=== PATIENT | female | born 1985 | race Caucasian/White ===

== ENCOUNTER 2021-02-21 12:27 | Outpatient (CLI) | payer OTHER, SELFPAY ==
--- NOTE | ~2021-02-21 | MR_ITS ---
EXAMINATION: MR abdomen wo/w con DATE: 02/21/2021 13:57 INDICATION: Liver hemangioma. TECHNIQUE: Magnetic resonance imaging (MRI) of the abdomen was performed without and with 16 mL Multi Saima intravenous contrast. Sequences included coronal T2-weighted FS FSE, coronal and axial FS FIEST A, axial T2-weighted FSE, coronal LAVA-flex, axial STIR FSE, axial DWI, axial dual-echo T1-weighted F SPGR, and axial LAVA. Postcontrast sequences included coronal LAVA-flex and a time course of axial LA VA. COMPARISON: Abdomen MRI 08/28/2018, CT abdomen and pelvis 02/03/2018 FINDINGS: There is a 16 mm hyperenhancing mass in right hepatic lobe. No washout. The gallbladder, spleen, panc reas, adrenal glands, and left kidney are normal. There is a 5 mm cyst in right kidney. There are no dilated loops of bowel. There are no pathologically enlarged lymph nodes. There is no free intraperit fuchs fluid. IMPRESSION: 1. 16 mm hyperenhancing liver mass, stable from 08/28/2018, likely a benign mass such as hemangioma o r focal nodular hyperplasia. Reviewed, dictated and finalized at location A. IMPRESSION: 1. 16 mm hyperenhancing liver mass, stable from 08/28/2018, likely a benign mas s such as hemangioma or focal nodular hyperplasia.
[2021-02-21 13:20] LABS: Estimated Glomerular Filt Rate 57
== END 2021-02-21 12:28 | disposition home or self-care (01) ==
PROVIDERS: PCP Internal Medicine
DX: D18.09 Hemangioma of other sites (principal)
CPT/HCPCS: 74183; A9577

== ENCOUNTER 2021-07-29 09:49 | Outpatient (CLI) | payer BC, SELFPAY ==
[2021-07-29 20:24] LABS: Add Urine Microscopic? NO; Appearance Urine Clear (Clear); Bilirubin Urine Negative (Negative); Blood Urine Negative (Negative); Color Urine Straw (Yellow); Glucose Urine UA Negative (Negative); Ketones Urine Negative (Negative); Leukocyte Esterase Ur Negative LEU/UL (NEGATIVE); Nitrate Urine Negative (Negative); Protein Urine Negative (Negative); Specific Grav Ur 1.008 (1.001-1.035); Urobilinogen Urine Negative mg/dL (<2.0)
[2021-07-29 20:32] LABS: Basophils Absolute Auto 0.1 K/mm3 (0.0-0.1); Basophils Percent Auto 1.2 % (0.2-1.2); Eosinophils Absolute Auto 0.1 K/mm3 (0-0.3); Hematocrit 44.7 % (37.0-47.0); Hemoglobin 14.5 g/dL (12.0-15.0); Immature Granulocyte Absolute 0.01 K/mm3 (0.00-0.031); Immature Granulocyte Percent A 0.2 % (0-0.5); Lymphocytes Absolute Auto 1.61 K/mm3 (0.9-3.2); Lymphocytes Percent Auto 32.5 % (18.3-44.2); Mean Corpuscular HGB Conc 32.4 g/dl (32-36); Mean Corpuscular Hemoglobin 30.9 pg (26-34); Mean Corpuscular Volume 95.3 fl (80-100); Mean Platelet Volume 9.4 fl (7.4-10.4); Monocytes Absolute Auto 0.6 K/mm3 (0.1-0.6); Monocytes Percent Auto 11.1 % (2.6-8.5); Neutrophils Absolute Auto 2.6 K/mm3 (1.3-6.7); Platelet Count Result 317 k/mm3 (150-375); Red Blood Count 4.69 M/mm3 (4.2-5.4); Red Cell Distribution Width 13.2 % (11.5-14.5)
[2021-07-29 20:34] LABS: Alanine Aminotransferase 20 U/L (4-35); Albumin Level 4.5 g/dL (3.5-5.1); Alkaline Phosphatase 55 U/L (38-126); Anion Gap 9 mmol/L (8-16); Aspartate Amino Transferase 27 U/L (14-36); Bilirubin,Total 0.5 mg/dL (0.2-1.3); Blood Urea Nitrogen 18 mg/dL (7-17); Calcium 9.9 mg/dL (8.4-10.2); Carbon Dioxide 26 mmol/L (22-30); Chloride 105 mmol/L (98-107); Cholesterol 172 mg/dL (0-200); Estimated Glomerular Filt Rate > 60; Glucose 90 mg/dL (65-110); HDL Direct 54 mg/dL; Potassium 4.2 mmol/L (3.4-5.0); Sodium 140 mmol/L (137-145); Triglycerides 92 mg/dL (<150)
[2021-07-29 20:51] LABS: LDL Cholesterol Direct 96 mg/dL
[2021-07-29 20:52] LABS: Hemoglobin A1C 5.4 % (<5.7)
[2021-07-29 21:05] LABS: Thyroid Stimulating Hormone Reflex 0.425 uIU/mL (0.465-4.68)
[2021-07-29 22:11] LABS: Free T4 Free Thyroxine Reflex 0.86 ng/dL (0.78-2.19)
[2021-07-29 23:04] LABS: Total Triiodothyronine (T3) 1.15 NG/ML (0.97-1.69)
== END 2021-07-29 09:50 | disposition home or self-care (01) ==
PROVIDERS: PCP Family Medicine; Visit Provider Family Medicine
DX: R55 Syncope and collapse (principal); Z00.00 Encounter for general adult medical examination without abnormal findings
CPT/HCPCS: 36415; 80053; 80061; 81003; 83036; 84439; 84443; 84480; 85025; 93005

== ENCOUNTER 2021-07-29 14:58 | Outpatient (CLI) | payer BC, SELFPAY ==
--- NOTE | 2021-07-29 15:14 | ECG_ITS ---
Measurements Intervals [place] Rate: 50 P: -8 MS: 142 QRS: 70 QRSD: 118 T: 16 QT: 452 QTc: 415 Interpretive Statements SINUS BRADYCARDIA INCOMPLETE RIGHT BUNDLE BRANCH BLOCK LOW QRS VOLTAGE IN PRECORDIAL LEADS BORDERLINE ECG Electronically Signed On 07-29-2021 15:42:17 CDT by Rosendo Prince D.O.
== END 2021-07-29 14:59 | disposition home or self-care (01) ==
LOC: ANHCARD 15:02
PROVIDERS: PCP Family Medicine; Visit Provider Family Medicine
DX: R55 Syncope and collapse (principal); I45.10 Unspecified right bundle-branch block
CPT/HCPCS: 93005

== ENCOUNTER 2021-08-18 11:31 | Outpatient (CLI) | payer BC, SELFPAY ==
--- NOTE | ~2021-08-18 | XR_ITS ---
XR abdomen obstructive series 08/18/2021 11:54 Indication: Abdominal pain Procedure: Supine and upright views of abdomen Comparison: No prior studies for comparison. Findings: Nonobstructive bowel gas pattern. Moderate colonic fecal loading. There is a punctate left renal stone. Lung bases unremarkable. No significant pleural effusion. No acute osseous abnormality. No free air. Impression: 1: Nonobstructive bowel gas pattern. 2: Left nephrolithiasis. Reviewed, dictated and finalized at location B. Impression: 1: Nonobstructive bowel gas pattern. 2: Left nephrolithiasis.
[2021-08-18 20:10] LABS: Basophils Absolute Auto 0.1 K/mm3 (0.0-0.1); Basophils Percent Auto 1.2 % (0.2-1.2); Eosinophils Absolute Auto 0.1 K/mm3 (0-0.3); Eosinophils Percent Auto 1.9 % (0-4.4); Hematocrit 39.5 % (37.0-47.0); Hemoglobin 12.8 g/dL (12.0-15.0); Immature Granulocyte Absolute 0.02 K/mm3 (0.00-0.031); Immature Granulocyte Percent A 0.4 % (0-0.5); Lymphocytes Absolute Auto 1.52 K/mm3 (0.9-3.2); Lymphocytes Percent Auto 29.2 % (18.3-44.2); Mean Corpuscular HGB Conc 32.4 g/dl (32-36); Mean Corpuscular Hemoglobin 31.1 pg (26-34); Mean Corpuscular Volume 96.1 fl (80-100); Mean Platelet Volume 9.4 fl (7.4-10.4); Monocytes Absolute Auto 0.4 K/mm3 (0.1-0.6); Monocytes Percent Auto 8.4 % (2.6-8.5); Neutrophils Absolute Auto 3.1 K/mm3 (1.3-6.7); Neutrophils Percent Auto 58.9 % (45.5-73.1); Platelet Count Result 274 k/mm3 (150-375); Red Blood Count 4.11 M/mm3 (4.2-5.4); Red Cell Distribution Width 12.9 % (11.5-14.5); White Blood Count 5.2 K/mm3 (4.5-10.0)
== END 2021-08-18 11:32 | disposition home or self-care (01) ==
LOC: ANHBWCLAB 11:33
PROVIDERS: PCP Family Medicine; Visit Provider Family Medicine
DX: R19.7 Diarrhea, unspecified (principal); R10.9 Unspecified abdominal pain; R79.89 Other specified abnormal findings of blood chemistry; N20.0 Calculus of kidney
CPT/HCPCS: 36415; 74019; 84443; 85025

== ENCOUNTER 2021-11-29 11:43 | Emergency (ER) | payer OTHER, BC, SELFPAY ==
[2021-11-29 11:54] VITALS: BP 121/74; PULSE 58; RESP 16; TEMP 36.8; O2SAT 100
--- NOTE | 2021-11-29 12:38 | ED.SKABFB ---
HPI - Skin/Abscess/Foreign Bdy General Chief complaint: Skin/Abscess/Foreign Body Stated complaint: R index finger injury Time Seen by Provider: 11/29/21 12:34 Source: patient and RN notes reviewed Mode of arrival: ambulatory Limitations: no limitations History of Present Illness HPI narrative: 36-year-old female presents with concern for infection to the second digit of her right hand. She reports she stabbed herself with a skewer at work 1 week ago. Reports it began getting red, tender, swollen yesterday. She denies any drainage from the area. She denies any decrease sensation, strength, range of motion. complaint: other (paronychia) Related Data Allergies Allergy/AdvReac Type Severity Reaction Status Date / Time amoxicillin Allergy Unknown Unknown Verified 11/29/21 11:57 sulfamethizole Allergy Unknown Unknown Verified 11/29/21 11:57 sulfamethoxazole Allergy Unknown Unknown Verified 11/29/21 11:57 trimethoprim Allergy Unknown Unknown Verified 11/29/21 11:57 Review of Systems Review of Systems: CONSTITUTIONAL: Denies malaise, chills, sweats, or fever. SKIN: Reports redness, warmth, swelling to the tip of the second digit of the right hand MUSCULOSKELETAL: Denies joint pain or myalgia. NEUROLOGIC: Denies headache. All systems reviewed & are unremarkable except as noted in HPI and below PMFSH Family History Family History Father Hypertension Diabetes mellitus Mother Family history of diabetes mellitus in first degree relative Sibling Depression Anxiety Grandparent Alcohol abuse Cancer Grandparent Cancer Social History Social History Smoking packs per day: 0.75 Smoking cigarettes per day: 15.0 Smoking status: Current every day smoker Tobacco type: cigarettes Second hand tobacco smoke exposure: No Smoking end date: 10/30/15 Alcohol intake: never Substance use: never Comments At time of signature, agree with nursing past medical, surgical, social and family history. There is no relevant family history pertinent to the presenting complaint Exam Narrative: GENERAL: Well-appearing, well-nourished, and in no acute distress. HEAD: Normocephalic, atraumatic. EYES: PERRLA, sclera clear ENT: Mucous membranes moist. NECK: Supple. No lymphadenopathy CHEST: Clear to auscultation. No respiratory distress. HEART: Regular rate and rhythm. SKIN: Warm, dry. Medial distal end of the second edge of the right hand erythematous, slightly indurated, slightly warm, tender without fluctuation NEURO: Alert and oriented x3. PSYCH: Normal mood and affect Course Course Emergency Course: Patient is aware of diagnosis, understands and agrees to treatment plan. Anticipatory guidance given. Patient agrees to follow-up as directed and is aware of reasons to seek care at the emergency department. Portions of this record may have been created with voice recognition software Level of Care: Express Care Visit Vital Signs Vital signs: Vital Signs Temperature 98.2 F 11/29/21 11:54 Pulse Rate 58 L 11/29/21 11:54 Respiratory Rate 16 11/29/21 11:54 Blood Pressure 121/74 11/29/21 11:54 Pulse Oximetry 100 11/29/21 11:54 Temperature 98.2 F 11/29/21 11:54 Pulse Rate 58 L 11/29/21 11:54 Respiratory Rate 16 11/29/21 11:54 Blood Pressure 121/74 11/29/21 11:54 Pulse Oximetry 100 11/29/21 11:54 Reviewed. MDM - Skin/Abscess/Foreign Bdy MDM Narrative Medical decision making narrative: Exam findings show no acute concerns or changes; patient is non-toxic appearing and is in no distress. Patient is appropriate for outpatient treatment and follow-up. Critical Care Time Critical Care Time Critical Care Time: No Discharge Plan Discharge Clinical Impression: Paronychia Patient Disposition: Home, Self-Care Condition: Stable Instructions: Antibiotic Form, Paronychia (ED) A
== END 2021-11-29 12:47 | disposition home or self-care (01) ==
PROVIDERS: Emergency Provider Nurse Practitioner; PCP Family Medicine
DX: L03.011 Cellulitis of right finger (principal); F17.210 Nicotine dependence, cigarettes, uncomplicated; F32.A Depression, unspecified
CPT/HCPCS: 99213; G0463

== ENCOUNTER 2022-06-30 08:42 | Outpatient (CLI) | payer BC, SELFPAY ==
--- NOTE | ~2022-06-30 | XR_ITS ---
EXAMINATION: XR knee RT 3V DATE: 06/30/2022 09:10 INDICATION: Right knee pain. TECHNIQUE: 4 views of right knee were obtained. COMPARISON: None. FINDINGS: Bone alignment is normal. No fracture. There is mild tricompartmental osteoarthritis charac terized by tiny osteophytes. No joint space narrowing. No knee joint effusion. IMPRESSION: 1. Mild right knee osteoarthritis. Reviewed, dictated and finalized at location A.
--- NOTE | ~2022-06-30 | XR_ITS ---
EXAMINATION: XR knee LT 3V DATE: 06/30/2022 09:10 INDICATION: Left knee pain. TECHNIQUE: 4 views of left knee were obtained. COMPARISON: None. FINDINGS: Bone alignment is normal. No fracture. There is mild tricompartmental osteoarthritis charac terized by tiny osteophytes. No joint space narrowing. No knee joint effusion. IMPRESSION: 1. Mild left knee osteoarthritis. Reviewed, dictated and finalized at location A.
== END 2022-06-30 08:43 | disposition home or self-care (01) ==
LOC: ANHBWCIMG 08:43
PROVIDERS: PCP Family Medicine; Visit Provider Family Medicine
DX: M17.0 Bilateral primary osteoarthritis of knee (principal)
CPT/HCPCS: 73562

== ENCOUNTER 2022-07-20 08:00 | Emergency (ER) | payer BC, SELFPAY ==
--- NOTE | 2022-07-20 08:04 | ED.EAR ---
HPI - Ear Problem General Stated complaint: HEARING MUFFLED R EAR Time Seen by Provider: 07/20/22 08:05 Source: patient Mode of arrival: ambulatory Limitations: no limitations History of Present Illness HPI Narrative: Ms. Burgos is a 36-year-old female patient presenting to clinic today with complaints of hearing muffled to the right ear x4 to 5 days. She reports no known injury to the area and she has been using some Debrox earwax emulsifier and this is not helped. She denies any pain or fever. She has had some nasal congestion and cough on and off. She is a current tobacco smoker Related Data Home Medications Medication Instructions Recorded Confirmed aripiprazole 5 mg tablet 5 mg PO HS 07/20/22 07/20/22 clonazepam 0.5 mg tablet 0.5 mg PO PRN PRN Anxiety 07/20/22 07/20/22 hydroxyzine HCl 25 mg tablet 25 mg PO DAILY 07/20/22 07/20/22 lamotrigine 25 mg tablet 25 mg PO DAILY 07/20/22 07/20/22 terbinafine HCl 250 mg tablet 250 mg PO DAILY 07/20/22 07/20/22 Allergies Allergy/AdvReac Type Severity Reaction Status Date / Time sulfamethizole Allergy Unknown Unknown Verified 07/20/22 08:13 sulfamethoxazole Allergy Unknown Unknown Verified 07/20/22 08:13 trimethoprim Allergy Unknown Unknown Verified 07/20/22 08:13 Review of Systems Review of Systems: Pertinent positives per HPI. Patient denies any fever, chills, rash, headache, visual changes, dizziness, sore throat, shortness of breath, chest pain, palpitations, nausea, vomiting, diarrhea, constipation, abdominal pain, or any urinary issues. [facility] Family History Family History Father Hypertension Diabetes mellitus Mother Family history of diabetes mellitus in first degree relative Sibling Depression Anxiety Grandparent Alcohol abuse Cancer Grandparent Cancer Social History Social History Smoking packs per day: 0.75 Smoking cigarettes per day: 15.0 Smoking status: Current every day smoker Tobacco type: cigarettes Second hand tobacco smoke exposure: No Smoking end date: 10/30/15 Alcohol intake: never Substance use: never Comments At the time of my signature, I reviewed and agree with the nursing past medical, surgical, social, and family history. There is no relevant family history pertinent to the patient complaint. Exam Narrative: General: Well-developed, well nourished, in no apparent distress Head: Normocephalic, atraumatic Eyes: Pupils equally round and reactive to light bilaterally, EOM intact, sclera and conjunctive clear, no discharge, lids normal Ears: Left TM intact and clear, right TM intact, dull, with mild fluid noted behind TM, ear canals clear, no drainage, grossly hearing normal. Nose: Nares patent, no discharge, no inflammation, no sinus tenderness. Mouth: Oropharynx without lesions or masses, good dentition, MMM. Neck: Supple, trachea midline, no enlargement of anterior or posterior cervical nodes, no thyroid masses or goiter palpable. Cardio: Regular rate and rhythm, s1 and s2 normal, no murmur appreciated. Resp: Clear to auscultation bilaterally anteriorly and posteriorly, no rhonchi, rales, wheezing or rubs Course Course Emergency Course: Portions of this record may have been created with voice recognition software. Level of Care: Express Care Visit Vital Signs Vital signs: Vital signs reviewed Medical Decision Making MDM Narrative Medical decision making narrative: At the time of visit patient is resting comfortably on the exam table. Right TM has mild fluid behind the TM and is dull. I suspect the patient has serous otitis causing her muffled hearing. Supportive measures were discussed with the patient she voiced understanding of discharge instructions. I did offer the use of some prednisone to assist with drying up secretions and patient declined as this makes her angry. Differ
[2022-07-20 08:09] VITALS: BP 106/45; PULSE 55; RESP 16; TEMP 36.2; O2SAT 100
== END 2022-07-20 08:19 | disposition home or self-care (01) ==
PROVIDERS: Emergency Provider Nurse Practitioner Family; PCP Family Medicine
DX: H65.01 Acute serous otitis media, right ear (principal); F17.210 Nicotine dependence, cigarettes, uncomplicated; F41.9 Anxiety disorder, unspecified; F32.A Depression, unspecified
CPT/HCPCS: 99211; G0463

== ENCOUNTER 2022-09-26 08:21 | Emergency (ER) | payer BC, SELFPAY ==
--- NOTE | 2022-09-26 08:25 | ED.URI ---
HPI - URI/Sore Throat General Chief Complaint: Upper Respiratory Infection Stated Complaint: SORE THROAT/CONGESITON/COUGH/TIRED/CHILLS Time Seen by Provider: 09/26/22 08:25 Source: patient and RN notes reviewed History of Present Illness [facility] Narrative: Patient is a 37-year-old female who presents to urgent care with complaints of 5 day history of sore throat, sinus congestion, cough, fatigue, body aches and nasal drainage. Patient states her daughter was positive for strep last week. Denies any fevers, nausea, vomiting. Patient has been using Tylenol cold and Sinus as well as Sudafed. No other acute complaints. No acute distress noted. Patient aware of the plan of care. Some parts of this dictation were generated by voice recognition software and may contain typographical and/or grammatical inaccuracies. Related Data Home Medications Medication Instructions Recorded Confirmed aripiprazole 5 mg tablet 5 mg PO HS 07/20/22 09/26/22 clonazepam 0.5 mg tablet 0.5 mg PO PRN PRN Anxiety 07/20/22 09/26/22 hydroxyzine HCl 25 mg tablet 25 mg PO DAILY 07/20/22 09/26/22 terbinafine HCl 250 mg tablet 250 mg PO DAILY 07/20/22 09/26/22 bupropion HCl 150 mg 24 hr tablet, 150 mg PO DIRECTED 09/26/22 09/26/22 extended release (Wellbutrin XL) Allergies Allergy/AdvReac Type Severity Reaction Status Date / Time sulfamethizole Allergy Unknown Unknown Verified 07/20/22 08:13 sulfamethoxazole Allergy Unknown Unknown Verified 07/20/22 08:13 trimethoprim Allergy Unknown Unknown Verified 07/20/22 08:13 Review of Systems Review of Systems: CONSTITUTIONAL: Reported to EYES: Denies visual changes, redness, or discharge. ENT: Reports of nasal drainage, congestion, sore throat CARDIOVASCULAR: Denies chest pain, palpitations, or edema. RESPIRATORY: Reports cough without dyspnea GASTROINTESTINAL: Denies abdominal pain, nausea, vomiting, or diarrhea. GENITOURINARY: Denies dysuria or hematuria. SKIN: Denies rash or itching. MUSCULOSKELETAL: Denies back pain, joint pain. Reports body aches NEUROLOGIC: Denies headache, numbness, or weakness. All other systems reviewed are negative, except as documented in HPI. [facility] Family History Family History Father Hypertension Diabetes mellitus Mother Family history of diabetes mellitus in first degree relative Sibling Depression Anxiety Grandparent Alcohol abuse Cancer Grandparent Cancer Social History Social History Smoking packs per day: 0.75 Smoking cigarettes per day: 15.0 Smoking status: Current every day smoker Tobacco type: cigarettes Second hand tobacco smoke exposure: No Smoking end date: 10/30/15 Alcohol intake: never Substance use: never Comments At the time of my signature, I reviewed and agree with the nursing past medical, surgical, social, and family history. There is no relevant family history pertinent to the patient complaint. Exam Narrative: GENERAL: This is a well-nourished, well-developed patient, in no apparent distress. HEAD: normocephalic, atraumatic. EYES: PERRL. Sclera clear/white. Vision is grossly intact. EARS: External ears normal, auditory canals clear and without drainage, TMs normal without perforation. Hearing grossly intact. NOSE: External nose normal with no obvious nasal discharge, nares without redness, clear rhinorrhea. THROAT: Mucous membranes moist, posterior pharynx clear. Mild postnasal drainage NECK: Neck supple, non-tender without lymphadenopathy CARDIOVASCULAR: Regular rate and rhythm without murmurs, gallops, or rubs. RESPIRATORY: Inspiratory wheezes throughout. Breath sounds equal bilaterally. SKIN: warm, intact with no suspicious lesions or rash, good texture and turgor. NEURO: awake, alert, and oriented to person, place and time. There were no obvious focal neurologic abnormalities. EXTREMITIES: N
[2022-09-26 08:26] VITALS: BP 114/71; PULSE 53; RESP 16; TEMP 37; O2SAT 99
== END 2022-09-26 08:54 | disposition home or self-care (01) ==
PROVIDERS: Emergency Provider Nurse Practitioner Family; PCP Family Medicine
DX: J06.9 Acute upper respiratory infection, unspecified (principal); F17.210 Nicotine dependence, cigarettes, uncomplicated
CPT/HCPCS: 87081; 87804; 87880; 99213; G0463

== ENCOUNTER 2022-11-27 14:04 | Emergency (ER) | payer BC, SELFPAY ==
[2022-11-27 14:11] VITALS: BP 104/61; PULSE 68; RESP 16; TEMP 37.2; O2SAT 100
--- NOTE | 2022-11-27 14:27 | ED.FEMALEGU ---
HPI - Female Genitourinary General Chief complaint: Urogenital-Female Stated complaint: UTI SYMPTOMS Time Seen by Provider: 11/27/22 14:17 Source: patient Mode of arrival: ambulatory Limitations: no limitations History of Present Illness HPI Narrative: Patient presents today complaining of a 5 day history of dysuria, urgency, frequency, lower abdominal pain. Denies back pain, fever. She has been taking azo with some relief. Last dose was just prior to arrival. Denies any recent antibiotic use. Related Data Home Medications Medication Instructions Recorded Confirmed aripiprazole 5 mg tablet 5 mg PO HS 07/20/22 11/27/22 hydroxyzine HCl 25 mg tablet 25 mg PO DAILY 07/20/22 11/27/22 bupropion HCl 150 mg 24 hr tablet, 150 mg PO DIRECTED 09/26/22 11/27/22 extended release (Wellbutrin XL) Allergies Allergy/AdvReac Type Severity Reaction Status Date / Time sulfamethizole Allergy Unknown Unknown Verified 11/27/22 14:09 sulfamethoxazole Allergy Unknown Unknown Verified 11/27/22 14:09 trimethoprim Allergy Unknown Unknown Verified 11/27/22 14:09 Review of Systems Review of Systems: CONSTITUTIONAL: Denies body aches, fever, chills, or sweats. EYES: Denies visual changes, redness, or discharge. ENT: Denies rhinorrhea, congestion, sore throat, or otalgia. CARDIOVASCULAR: Denies chest pain, palpitations, or edema. RESPIRATORY: Denies cough or dyspnea. GASTROINTESTINAL: Denies nausea, vomiting, or diarrhea. GENITOURINARY: + dysuria, urgency, frequency, lower abdominal pain SKIN: Denies rash, itching, or wounds. MUSCULOSKELETAL: Denies back pain, joint pain, or myalgia. NEUROLOGIC: Denies headache, numbness, tingling, or weakness. PSYCH: Denies depression or anxiety. [facility] Past Medical History Medical History (Updated 11/27/22 @ 14:31 by Yeny Schafer, FACILITIES MAINTENANCE TECHNICIAN, ) Depression Family History Family History Father Hypertension Diabetes mellitus Mother Family history of diabetes mellitus in first degree relative Sibling Depression Anxiety Grandparent Alcohol abuse Cancer Grandparent Cancer Social History Social History (Reviewed 07/20/22 @ 08:25 by PATTIE Coleman Smoking packs per day: 0.75 Smoking cigarettes per day: 15.0 Smoking status: Current every day smoker Tobacco type: cigarettes Second hand tobacco smoke exposure: No Smoking end date: 10/30/15 Alcohol intake: never Substance use: never Comments At time of signature, I have reviewed and agree with nursing past medical, surgical, social and family history unless otherwise noted. Please see nursing chart for further information. There is no relevant family history pertinent to the presenting complaint Exam Narrative: GENERAL: Well-appearing, well-nourished, and in no acute distress. HEAD: Normocephalic, atraumatic. EYES: EOMI. No redness or drainage. Conjunctivae normal. ENT: Mucous membranes pink and moist. NECK: Normal AROM. CHEST: No respiratory distress. Clear to auscultation. HEART: Regular rate and rhythm. No murmur appreciated. Normal peripheral pulses. ABDOMEN: Soft, nondistended, normal active bowel sounds. Mild suprapubic tenderness EXTREMITIES: Normal range of motion. No edema. SKIN: Warm, dry, no rash. Capillary refill normal. Normal skin turgor. NEURO: No focal deficits. Alert and oriented x3. Gait steady. PSYCH: Normal affect. No signs of depression or anxiety. Course Course Emergency Course: He since patient took azo so close to her visit, it did speak with the results of her tests will treat empirically based on symptoms, and since the way off for urine culture to confirm. She will be prescribed Macrobid. Anticipatory guidance given. Level of Care: Express Care Visit Vital Signs Vital signs: Vital Signs Temperature 99 F 11/27/22 14:11 Pulse Rate 68 11/27/22 14:11 Respiratory Rate 16 11/27/22 14:11 Blood
== END 2022-11-27 14:37 | disposition home or self-care (01) ==
PROVIDERS: Emergency Provider Nurse Practitioner; PCP Nurse Practitioner Adult Health
DX: N39.0 Urinary tract infection, site not specified (principal); F17.210 Nicotine dependence, cigarettes, uncomplicated; F32.A Depression, unspecified
CPT/HCPCS: 81003; 87086; 87088; 99213; G0463

== ENCOUNTER 2023-10-30 10:09 | Emergency (ER) | payer OTHER, SELFPAY ==
--- NOTE | 2023-10-30 10:31 | ED.URI ---
HPI - URI/Sore Throat General Chief Complaint: Upper Respiratory Infection Stated Complaint: chills,throat hurts Time Seen by Provider: 10/30/23 11:04 Source: patient and RN notes reviewed Mode of arrival: ambulatory Limitations: no limitations History of Present Illness HPI Narrative: 38 year old female presents with concern for chills, sore throat, chest congestion since yesterday. She reports she took ibuprofen which helps. She reports nasal congestion, rhinorrhea, headache, body aches. 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: cough, sore throat and nasal congestion Related Data Home Medications Medication Instructions Recorded Confirmed aripiprazole 5 mg tablet 5 mg PO HS 07/20/22 10/30/23 hydroxyzine HCl 25 mg tablet 25 mg PO DAILY 07/20/22 10/30/23 bupropion HCl 150 mg 24 hr tablet, 150 mg PO DIRECTED 09/26/22 10/30/23 extended release (Wellbutrin XL) Allergies Allergy/AdvReac Type Severity Reaction Status Date / Time sulfamethizole Allergy Unknown Unknown Verified 10/30/23 10:37 sulfamethoxazole Allergy Unknown Unknown Verified 10/30/23 10:37 trimethoprim Allergy Unknown Unknown Verified 10/30/23 10:37 Review of Systems Review of Systems: CONSTITUTIONAL: Reports malaise, chills, sweats, or fever. EYES: Denies visual changes, redness, or discharge. ENT: Reports rhinorrhea, congestion, and sore throat. CARDIOVASCULAR: Denies chest pain, palpitations, or edema. RESPIRATORY: Reports cough and chest congestion. Denies dyspnea. GASTROINTESTINAL: Denies abdominal pain, nausea, vomiting, diarrhea SKIN: Denies rash or itching. MUSCULOSKELETAL: Reports myalgia. NEUROLOGIC: Reports headache. All systems reviewed & are unremarkable except as noted in HPI and below PMFSH Past Medical History Medical History Depression Family History Family History Father Hypertension Diabetes mellitus Mother Family history of diabetes mellitus in first degree relative Sibling Depression Anxiety Grandparent Alcohol abuse Cancer Grandparent Cancer Social History Social History Smoking packs per day: 0.75 Smoking cigarettes per day: 15.0 Smoking status: Current every day smoker Tobacco type: cigarettes Second hand tobacco smoke exposure: No Smoking end date: 10/30/15 Alcohol intake: never Substance use: never Comments At time of signature, agree with nursing past medical, surgical, social and family history. There is no relevant family history pertinent to the presenting complaint Exam Narrative: GENERAL: Nontoxic-appearing, well-nourished, and in no acute distress. HEAD: Normocephalic EYES: PERRLA, conjunctivae clear ENT: Nares clear, clear discharge. Mucous membranes moist. TM pearly sen with sharp light reflex bilaterally; no tragal tenderness. Oropharynx not erythematous without lesions. Tonsils not enlarged and without exudate, no drooling, no hoarseness, no trismus, uvula midline. NECK: Supple. No lymphadenopathy CHEST: Scattered expiratory wheeze, otherwise clear to auscultation, breath sounds equal. No rhonchi, rales, or stridor. No respiratory distress, speaks in full sentences. HEART: Regular rate and rhythm. No murmur heard. SKIN: Warm, dry, no rash. NEURO: Alert and oriented x3. PSYCH: Normal mood and affect Course Course Emergency Course: Patient is aware of diagnosis, understands and agrees to treatment plan. Anticipatory guidance given. Patient agrees to follow-up as directed and is aware of reasons to seek care at the emergency department. Portions of this record may have been created with voice recognition software Level of Care: Express Care Visit Vital Signs Vital signs: Reviewed. MDM - URI/Sore Throat MDM Narrative Medical decision making narrative: Differential diagnosis
[2023-10-30 10:41] VITALS: BP 134/89; PULSE 95; RESP 16; TEMP 37.5; O2SAT 98
== END 2023-10-30 11:18 | disposition home or self-care (01) ==
PROVIDERS: Emergency Provider Nurse Practitioner; PCP Family Medicine
DX: B34.9 Viral infection, unspecified (principal); Z20.822 Contact with and (suspected) exposure to COVID-19; Z87.891 Personal history of nicotine dependence; F32.A Depression, unspecified
CPT/HCPCS: 87081; 87426; 87804; 87880; 99213; C9803; G0463

== ENCOUNTER 2023-12-31 18:22 | Emergency (ER) | payer OTHER, SELFPAY ==
[2023-12-31 18:37] VITALS: BP 124/82; PULSE 90; RESP 16; TEMP 37.4; O2SAT 100
--- NOTE | 2023-12-31 19:00 | ED.URI ---
HPI - URI/Sore Throat General Chief Complaint: Upper Respiratory Infection Stated Complaint: Cough/Congestion Time Seen by Provider: 12/31/23 18:46 Source: patient and RN notes reviewed Mode of arrival: ambulatory Limitations: no limitations History of Present Illness HPI Narrative: Patient presents today complaining of a 4 day history of productive cough, chest congestion, rhinorrhea. Denies fever, sore throat, shortness of breath. She has been taking ibuprofen using a leftover inhaler, and taking a few leftover prednisone without much relief. Related Data Home Medications Medication Instructions Recorded Confirmed aripiprazole 5 mg tablet 5 mg PO HS 07/20/22 12/31/23 hydroxyzine HCl 25 mg tablet 25 mg PO DAILY 07/20/22 12/31/23 bupropion HCl 150 mg 24 hr tablet, 150 mg PO DIRECTED 09/26/22 12/31/23 extended release (Wellbutrin XL) Allergies Allergy/AdvReac Type Severity Reaction Status Date / Time sulfamethizole Allergy Unknown Unknown Verified 12/31/23 18:50 sulfamethoxazole Allergy Unknown Unknown Verified 12/31/23 18:50 trimethoprim Allergy Unknown Unknown Verified 12/31/23 18:50 Review of Systems Review of Systems: CONSTITUTIONAL: Denies body aches, fever, chills, or sweats. EYES: Denies visual changes, redness, or discharge. ENT: Denies rhinorrhea, sore throat, or otalgia.+ congestion, rhinorrhea CARDIOVASCULAR: Denies chest pain, palpitations, or edema. RESPIRATORY: Denies dyspnea.+ cough, chest congestion GASTROINTESTINAL: Denies abdominal pain, nausea, vomiting, or diarrhea. GENITOURINARY: Denies dysuria or hematuria. SKIN: Denies rash, itching, or wounds. MUSCULOSKELETAL: Denies back pain, joint pain, or myalgia. NEUROLOGIC: Denies headache, numbness, tingling, or weakness. PSYCH: Denies depression or anxiety. [facility] Past Medical History Medical History Depression Family History Family History Father Hypertension Diabetes mellitus Mother Family history of diabetes mellitus in first degree relative Sibling Depression Anxiety Grandparent Alcohol abuse Cancer Grandparent Cancer Social History Social History Smoking packs per day: 0.75 Smoking cigarettes per day: 15.0 Smoking status: Current every day smoker Tobacco type: cigarettes Second hand tobacco smoke exposure: No Smoking end date: 10/30/15 Alcohol intake: never Substance use: never Comments At time of signature, I have reviewed and agree with nursing past medical, surgical, social and family history unless otherwise noted. Please see nursing chart for further information. There is no relevant family history pertinent to the presenting complaint Exam Narrative: GENERAL: Well-appearing, well-nourished, and in no acute distress. HEAD: Normocephalic, atraumatic. EYES: EOMI. No redness or drainage. Conjunctivae normal. ENT: Mucous membranes pink and moist. Nares clear. No rhinorrhea. TMs normal bilaterally. Throat normal. Uvula midline. NECK: Normal AROM. Supple. No lymphadenopathy. CHEST: No respiratory distress. Mild respiratory wheezing in the left lower lobe, otherwise clear HEART: Regular rate and rhythm. No murmur appreciated. EXTREMITIES: Normal range of motion. No edema. SKIN: Warm, dry, no rash. Capillary refill normal. Normal skin turgor. NEURO: No focal deficits. Alert and oriented x3. Gait steady. PSYCH: Normal affect. No signs of depression or anxiety. Course Course Level of Care: Express Care Visit Vital Signs Vital signs: Vital Signs Temperature 99.3 F 12/31/23 18:37 Pulse Rate 90 12/31/23 18:37 Respiratory Rate 16 12/31/23 18:37 Blood Pressure 124/82 12/31/23 18:37 Pulse Oximetry 100 12/31/23 18:37 Temperature 99.3 F 12/31/23 18:37 Pulse Rate 90
== END 2023-12-31 19:18 | disposition home or self-care (01) ==
PROVIDERS: Emergency Provider Nurse Practitioner; PCP Family Medicine
DX: J06.9 Acute upper respiratory infection, unspecified (principal); F32.A Depression, unspecified; F17.210 Nicotine dependence, cigarettes, uncomplicated; Z79.899 Other long term (current) drug therapy
CPT/HCPCS: 99213; G0463

== ENCOUNTER 2024-04-07 18:51 | Emergency (ER) | payer OTHER, SELFPAY ==
--- NOTE | 2024-04-07 18:55 | ED.SKABFB ---
HPI - Skin/Abscess/Foreign Bdy General Chief complaint: Skin/Abscess/Foreign Body Stated complaint: Cold Sores Time Seen by Provider: 04/07/24 18:53 Source: patient Mode of arrival: ambulatory Limitations: no limitations History of Present Illness HPI narrative: Tracie is a 30-year-old female patient presenting to the clinic today with complaints of cold sores in her mouth. She reports she has had cracking and soreness to the corners of her mouth. This is been going on for or several days. Has been trying to foot [id number] or ointments on nothing seems to be helping. She takes valacyclovir for cold sores Related Data Home Medications Medication Instructions Recorded Confirmed hydroxyzine HCl 25 mg tablet 25 mg PO DAILY 07/20/22 04/07/24 Allergies Allergy/AdvReac Type Severity Reaction Status Date / Time sulfamethizole Allergy Unknown Unknown Verified 04/07/24 18:53 sulfamethoxazole Allergy Unknown Unknown Verified 04/07/24 18:53 trimethoprim Allergy Unknown Unknown Verified 04/07/24 18:53 Review of Systems Review of Systems: Pertinent positives per HPI. Patient denies any fever, chills, rash, headache, visual changes, dizziness, cough, runny nose, sore throat, shortness of breath, chest pain, palpitations, nausea, vomiting, diarrhea, constipation, abdominal pain, or any urinary issues. PMFSH Past Medical History Medical History Depression Family History Family History Father Hypertension Diabetes mellitus Mother Family history of diabetes mellitus in first degree relative Sibling Depression Anxiety Grandparent Alcohol abuse Cancer Grandparent Cancer Social History Social History Smoking packs per day: 0.75 Smoking cigarettes per day: 15.0 Smoking status: Current every day smoker Tobacco type: cigarettes Second hand tobacco smoke exposure: No Smoking end date: 10/30/15 Alcohol intake: never Substance use: never Comments At the time of my signature, I reviewed and agree with the nursing past medical, surgical, social, and family history. There is no relevant family history pertinent to the patient complaint. Exam Narrative: General: Well-developed, well nourished, in no apparent distress Head: Normocephalic, atraumatic Eyes: Pupils equally round and reactive to light bilaterally, EOM intact, sclera and conjunctive clear, no discharge, lids normal Ears: TMs intact and clear, ear canals clear, no drainage, grossly hearing normal. Nose: Nares patent, no discharge, no inflammation, no sinus tenderness. Mouth: Oropharynx without lesions or masses, good dentition, MMM. Angular chelitis bilateral with yellow crusting Neck: Supple, trachea midline, no enlargement of anterior or posterior cervical nodes, no thyroid masses or goiter palpable. Cardio: Regular rate and rhythm, s1 and s2 normal, no murmur appreciated. Resp: Clear to auscultation bilaterally anteriorly and posteriorly, no rhonchi, rales, wheezing or rubs Course Course Emergency Course: Portions of this record may have been created with voice recognition software. Level of Care: Express Care Visit Vital Signs Vital signs: Vital signs reviewed MDM - Skin/Abscess/Foreign Bdy MDM Narrative Medical decision making narrative: At the time of visit patient is resting comfortably on the exam table. Patient appears to be nontoxic. Plan: I suspect you have angular chill itis. Prescription for mupirocin cream was sent to the pharmacy to cover for a staph infection. If symptoms are not improving after using the mupirocin cream may try clotrimazole cream to cover for a fungal infection. Supportive measures were discussed with the patient and they voiced understanding discharge instructions and agrees to treatment plan. Return pre
[2024-04-07 19:03] VITALS: BP 115/51; PULSE 71; RESP 16; TEMP 36.6; O2SAT 99
== END 2024-04-07 19:20 | disposition home or self-care (01) ==
PROVIDERS: Emergency Provider Nurse Practitioner Family
DX: K13.0 Diseases of lips (principal); Z87.891 Personal history of nicotine dependence
CPT/HCPCS: 99213; G0463

== ENCOUNTER 2024-08-09 15:19 | Emergency (ER) | payer OTHER, SELFPAY ==
[2024-08-09 15:35] VITALS: BP 112/61; PULSE 62; RESP 16; TEMP 36.6; O2SAT 100
--- NOTE | 2024-08-09 15:42 | ED.URI ---
HPI - URI/Sore Throat General Chief Complaint: Upper Respiratory Infection Stated Complaint: cough,congestion Source: patient and RN notes reviewed Mode of arrival: ambulatory Limitations: no limitations History of Present Illness HPI Narrative: 38-year-old female presented for complaint of headache, body aches, sinus congestion, cough, sore throat. Onset 2 days. Taking ibuprofen and Sudafed. Denies sob, wheezing, n/v/d/f/c. Reports son has similar symptoms. MD elicited complaint: cough Related Data Home Medications Medication Instructions Recorded Confirmed bupropion HCl 150 mg 24 hr tablet, 150 mg PO DIRECTED 06/19/24 08/09/24 extended release sertraline 100 mg tablet 200 mg PO DIRECTED 06/19/24 08/09/24 Allergies Allergy/AdvReac Type Severity Reaction Status Date / Time sulfamethizole Allergy Unknown Unknown Verified 08/09/24 15:21 sulfamethoxazole Allergy Unknown Unknown Verified 08/09/24 15:21 trimethoprim Allergy Unknown Unknown Verified 08/09/24 15:21 Review of Systems Review of Systems: CONSTITUTIONAL: Endorses malaise, denies chills, sweats, fever EYES: Denies visual changes, redness, or discharge ENT: Reports rhinorrhea, congestion, sore throat CARDIOVASCULAR: Denies chest pain, palpitations, edema RESPIRATORY: Reports cough, post nasal drainage. Denies dyspnea GASTROINTESTINAL: Denies abdominal pain, nausea, vomiting, diarrhea SKIN: Denies rash or itching MUSCULOSKELETAL: Endorses myalgia PMFSH Past Medical History Medical History Depression Family History Family History Father Hypertension Diabetes mellitus Mother Family history of diabetes mellitus in first degree relative Sibling Depression Anxiety Grandparent Alcohol abuse Cancer Grandparent Cancer Social History Social History Smoking packs per day: 0.75 Smoking cigarettes per day: 15.0 Smoking status: Current every day smoker Tobacco type: cigarettes Second hand tobacco smoke exposure: No Smoking end date: 10/30/15 Alcohol intake: never Substance use: never Exam Narrative: GENERAL: mildly Ill-appearing, nontoxic no acute distress. EYES: conjunctivae clear ENT: Mucous membranes moist. TMs pearly sen with dull light reflex bilaterally; no tragal tenderness. Oropharynx erythematous without lesions or exudate, no drooling, no hoarseness, no trismus, uvula midline. No tripod positioning, muffled voice, soft palate or pharyngeal wall bulging NECK: Supple. No lymphadenopathy CHEST: Clear to auscultation, breath sounds equal. No respiratory distress, speaks in full sentences. HEART: Regular rate and rhythm. No murmur heard. SKIN: Warm, dry, no rash. NEURO: Alert and oriented x3. PSYCH: Normal mood and affect Course Course Emergency Course: Patient is aware of diagnosis, understands and agrees to treatment plan. Anticipatory guidance given. Patient agrees to follow-up as directed and is aware of reasons to seek care at the emergency department. Portions of this record may have been created with voice recognition software Level of Care: Express Care Visit Vital Signs Vital signs: Vital Signs Temperature 98 F 08/09/24 15:35 Pulse Rate 62 08/09/24 15:35 Respiratory Rate 16 08/09/24 15:35 Blood Pressure 112/61 08/09/24 15:35 Pulse Oximetry 100 08/09/24 15:35 Temperature 98 F 08/09/24 15:35 Pulse Rate 62 08/09/24 15:35 Respiratory Rate 16 08/09/24 15:35 Blood Pressure 112/61 08/09/24 15:35 Pulse Oximetry 100 08/09/24 15:35 reviewed MDM - URI/Sore Throat MDM Narrative Medical decision making narrative: Discussed physical exam findings. Results of flu, COVID, and strep reviewed with patient. Advised supportive measures and signs/symptoms to go to the ER. Pt is appropriate
[2024-08-09 16:11] LABS: EDCOVIDSCREEN Negative (Negative); EDINFLUASCREEN Negative (Negative); EDINFLUBSCREEN Negative (Negative)
[2024-08-15 07:55] LABS: EDSTREPNEGPOS1 Negative (Negative)
== END 2024-08-09 16:16 | disposition home or self-care (01) ==
PROVIDERS: Emergency Provider Nurse Practitioner Family; PCP Family Medicine
DX: J06.9 Acute upper respiratory infection, unspecified (principal); Z20.822 Contact with and (suspected) exposure to COVID-19; Z87.891 Personal history of nicotine dependence; F32.A Depression, unspecified
CPT/HCPCS: 87081; 87426; 87804; 87880; 99213; G0463

== ENCOUNTER 2024-08-26 09:04 | Emergency (ER) | payer OTHER, SELFPAY ==
[2024-08-26 09:15] VITALS: BP 105/66; PULSE 62; RESP 15; TEMP 36.7; O2SAT 98
--- NOTE | 2024-08-26 09:20 | ED.URI ---
HPI - URI/Sore Throat General Chief Complaint: Upper Respiratory Infection Stated Complaint: Sore Throat Time Seen by Provider: 08/26/24 09:20 Source: patient Mode of arrival: ambulatory Limitations: no limitations History of Present Illness HPI Narrative: 38-year-old female presents with complaint of continued nasal congestion, sinus pressure, coughing. Was seen for same complaint on August 09. States she was not given any medications at that time. Patient states new symptom of sore throat. Complaining of body aches, chills, fatigue. Afebrile. No chest pain or shortness of breath. All systems reviewed and negative except as noted above. Related Data Home Medications Medication Instructions Recorded Confirmed bupropion HCl 150 mg 24 hr tablet, 150 mg PO DIRECTED 06/19/24 08/26/24 extended release sertraline 100 mg tablet 200 mg PO DIRECTED 06/19/24 08/26/24 Allergies Allergy/AdvReac Type Severity Reaction Status Date / Time sulfamethizole Allergy Unknown Unknown Verified 08/26/24 09:17 sulfamethoxazole Allergy Unknown Unknown Verified 08/26/24 09:17 trimethoprim Allergy Unknown Unknown Verified 08/26/24 09:17 Review of Systems Review of Systems: CONSTITUTIONAL: Denies fever, chills, or sweats. Reports fatigue. EYES: Denies visual changes, redness, or discharge. ENT: Reports rhinorrhea, congestion, sinus pressure, sore throat, or otalgia. CARDIOVASCULAR: Denies chest pain, palpitations, or edema. RESPIRATORY: Reports cough and dyspnea with exertion GASTROINTESTINAL: Denies abdominal pain, nausea, vomiting, or diarrhea. GENITOURINARY: Denies dysuria or hematuria. SKIN: Denies rash or itching. MUSCULOSKELETAL: Denies back pain, joint pain. Reports myalgia. NEUROLOGIC: Denies headache, numbness, or weakness. PSYCHIATRIC: Denies anxiety or depression. All other systems reviewed are negative, except as documented in HPI. [facility] Past Medical History Medical History Depression Family History Family History Father Hypertension Diabetes mellitus Mother Family history of diabetes mellitus in first degree relative Sibling Depression Anxiety Grandparent Alcohol abuse Cancer Grandparent Cancer Social History Social History Smoking packs per day: 0.75 Smoking cigarettes per day: 15.0 Smoking status: Current every day smoker Tobacco type: cigarettes Second hand tobacco smoke exposure: No Smoking end date: 10/30/15 Alcohol intake: never Substance use: never Comments At time of signature, agree with nursing past medical, surgical, social and family history. There is no relevant family history pertinent to the presenting complaint. Exam Narrative: GENERAL: This is a well-nourished, well-developed patient, patient ill-appearing but in no acute distress HEAD: normocephalic, atraumatic. EYES: PERRL. Sclera clear/white. Vision is grossly intact. EARS: External ears normal, auditory canals clear and without drainage, TMs normal without perforation. Hearing grossly intact. NOSE: External nose normal with moderate congestion, clear nasal drainage, erythema and swelling to bilateral nares THROAT: Mucous membranes moist, erythema postnasal drainage. No swelling or exudates NECK: Neck supple, non-tender without lymphadenopathy, masses or thyromegaly. CARDIOVASCULAR: Regular rate and rhythm without murmurs, gallops, or rubs. RESPIRATORY: Decreased to right lower lung field. Breath sounds equal bilaterally. No wheezes, rales, or rhonchi. SKIN: warm, Dry, intact with no suspicious lesions or rash, good texture and turgor. NEURO: awake, alert, and oriented to person, place and time. There were no obvious focal neurologic abnormalities. EXTREMITIES: No joint tenderness, effusion, or edema noted. Course Course Level of Care: Express Care Visit Vital Signs Vital signs: Vital Signs Temperature 36.7 C 08/26/24 09:15 Pulse Rate 62 08/26/24 09:15 Respiratory Rate 15 08/26/24 09:15 Blood Pressure 105/66 08/26/24 09:15 Pulse Oximetry 98 08/26/24 09:15 Oxygen Delivery Room Air 08/26/24 09:15 Temperature 36.7 C 08/26/24 09:15 Pulse Rate 62 08/26/24 09:15 Respiratory Rate 15 08/26/24 09:15 Blood Pressure 105/66 08/26/24 09:15 Pulse Oximetry 98 08/26/24 09:15 Oxygen Delivery Room Air 08/26/24 09:15 Reviewed MDM - URI/Sore Throat MDM Narrative Medical decision making narrative: Will treat patient with antibiotic due to duration of symptoms and exam findings. Nontoxic, vital signs normal. Patient is aware of diagnosis, understands and agrees to treatment plan. Anticipatory guidance given. Patient agrees to follow-up as directed and is aware of reasons to seek care at the emergency department. Portions of this record may have been created with voice recognition software Differential Diagnosis Differential diagnosis: Likely upper respiratory infection, sinusitis, viral infection, bronchitis and pharyngitis Discharge Plan Discharge Clinical Impression: Acute bronchitis, Acute pharyngitis Patient Disposition: Home, Self-Care Condition: Stable Instructions: Antibiotic Form, Pharyngitis (ED) Additional Instructions: Take medications as prescribed. Take Tylenol or ibuprofen every 6-8 hours as needed for pain and fever. Drink at least 64 oz of water a day. Place a cool-mist humidifier in bedroom where you sleep. Follow-up with your primary care physician if symptoms are not improving. Prescriptions: New azithromycin 250 mg tablet See Rx Instructions .ROUTE .COMPLEX Qty: 6 0RF Rx Instructions: For 250 mg dose pack: take 500 mg today (day 1), then 250 mg for 4 days (days 2-5) mometasone [Allergy Nasal (mometasone)] 50 mcg/actuation spray,non-aerosol 2 spray intranasal DAILY Qty: 17 0RF Rx Instructions: administer into each nostril methylprednisolone [Medrol (Camilo)] 4 mg tablets,dose pack See Rx Instructions PO .COMPLEX Qty: 21 0RF Rx Instructions: orally per package directions benzonatate 200 mg capsule 200 mg PO TID PRN (Reason: cough) Qty: 20 0RF No Action bupropion HCl 150 mg tablet extended release 24 hr 150 mg PO DIRECTED sertraline 100 mg tablet 200 mg PO DIRECTED ferrous sulfate 325 mg (65 mg iron) tablet,delayed release (DR/EC) 325 mg PO DAILY Qty: 90 1RF Follow-up/Referrals: Hua Gordillo MD [Primary Care Provider] - Time of Disposition: 09:28
== END 2024-08-26 09:31 | disposition home or self-care (01) ==
PROVIDERS: Emergency Provider Nurse Practitioner Family; PCP Family Medicine
DX: J20.9 Acute bronchitis, unspecified (principal); J02.9 Acute pharyngitis, unspecified; Z87.891 Personal history of nicotine dependence; F32.A Depression, unspecified
CPT/HCPCS: 99213; G0463

== ENCOUNTER 2024-09-02 02:21 | Day surgery (SDC) | payer OTHER, SELFPAY ==
[2024-09-02] VITALS (8 sets, daily range): BP systolic 104–127; BP diastolic 54–78; PULSE 61–79; RESP 14–18; TEMP 36.1–36.8; O2SAT 94–98
--- NOTE | 2024-09-02 08:31 | PM.IMHP ---
H&P: HPI History of Present Illness Date/Time: 09/02/24 08:31 Chief Complaint: desires sterilization Narrative: Patient is a 39 year old female who presents for diagnostic laparoscopy and bilateral salpingectomy. She has completed childbearing and does not desire future pregnancies. She also reports a history of deep dyspareunia and cramping after sex. Pelvic US was overall normal aside from a possible small fibroid. Risks, benefits, and alternatives to diagnostic laparoscopy and bilateral salpingectomy were discussed with patient who voices understanding and wishes to proceed with surgery. Denies abdominal pain, fevers, chills, or dysuria today. Review of Systems Review of Systems: All systems reviewed & are unremarkable except as noted in HPI and below PMFSH Past Medical History Medical History Depression Family History Family History Father Hypertension Diabetes mellitus Mother Family history of diabetes mellitus in first degree relative Sibling Depression Anxiety Grandparent Alcohol abuse Cancer Grandparent Cancer Social History Social History Smoking packs per day: 0.75 Smoking cigarettes per day: 15.0 Smoking status: Current every day smoker Tobacco type: cigarettes Second hand tobacco smoke exposure: No Smoking end date: 10/30/15 Alcohol intake: never Substance use: never Meds Home Medications and Allergies Home Medications Medication Instructions Recorded Confirmed Type bupropion HCl 150 mg 24 hr tablet, 150 mg PO DIRECTED 06/19/24 09/02/24 History extended release sertraline 100 mg tablet 200 mg PO DIRECTED 06/19/24 09/02/24 History ferrous sulfate 325 mg (65 mg 325 mg PO DAILY #90 tabs 07/02/24 09/02/24 Rx iron) tablet,delayed release Allergies Allergy/AdvReac Type Severity Reaction Status Date / Time sulfamethizole Allergy Unknown Unknown Verified 08/26/24 09:17 sulfamethoxazole Allergy Unknown Unknown Verified 08/26/24 09:17 trimethoprim Allergy Unknown Unknown Verified 08/26/24 09:17 Exam Const: General: comfortable and no acute distress HENMT: Mouth: Yes moist mucous membranes Resp: Effort & Inspection: normal respiratory effort Cardio: Rate: regular rate Skin: General skin exam: normal color Extrem: General: normal to inspection Psych: Mental Status: mental status grossly normal Assessment and Plan Assessment and plan (1) Encounter for sterilization: Code(s): Z30.2 - Encounter for sterilization Status: Acute Assessment and Plan: - patient desires permanent sterilization - risks, benefits, and alternatives to bilateral salpingectomy discussed with patient who voices understanding - will proceed with laparoscopic bilateral salpingectomy - tubal forms signed (2) Deep dyspareunia: Code(s): N94.12 - Deep dyspareunia Status: Acute Assessment and Plan: - patient reports hx of deep dyspareunia - pelvic US overall normal - will evaluate for endometriosis with diagnostic laparoscopy at time of procedure
--- NOTE | 2024-09-02 08:37 | WPDHPUPDATE1 ---
History and Physical Update Update Date/Time: 09/02/24 08:37 History and Physical has been reviewed, including an updated exam of the patient. There are NO changes in the patient's condition. Risks, benefits, and alternatives have been discussed and questions answered. Patient agrees to proceed with procedure.
[2024-09-02] MEDS: ACETAMINOPHEN 500 MG TABLET 1000 MG PO (08:45)
[2024-09-02] MEDS: KETOROLAC 15 MG/ML VIAL (*BKC) IV PUSH (08:55)
[2024-09-02 09:18] LABS: BEDSIDEPREGUCG Negative (Negative)
[2024-09-02 09:29] LABS: Hematocrit 41.7 % (37.0-47.0); Hemoglobin 13.4 g/dL (12.0-15.0)
--- NOTE | 2024-09-02 09:39 | WPDANESEPPF ---
Anes - Initial Pre Proc Eval Procedure: Operation Date: 09/02/24 10:00 Proposed Procedures p Diagnostic Laparoscopy, - Zander Maria MD s Laparoscopic Bilateral Tubal Ligation - Zander Maria MD Date/Time: 09/02/24 09:39 Surgeon: Zander Maria MD Pre Op Diagnosis: desires sterilizaion, Patient Data Age: 39 Gender: F Height: Weight: Last Vital Signs Temp 36.8 C 09/02/24 08:10 Pulse 70 09/02/24 08:10 Resp 16 09/02/24 08:10 BP 112/69 09/02/24 08:10 Pulse Ox 98 09/02/24 08:10 O2 Del Method Room Air 09/02/24 08:10 Allergies Allergy/AdvReac Type Severity Reaction Status Date / Time sulfamethizole Allergy Unknown Unknown Verified 09/02/24 09:14 sulfamethoxazole Allergy Unknown Unknown Verified 09/02/24 09:14 trimethoprim Allergy Unknown Unknown Verified 09/02/24 09:14 Home Medications Medication Instructions Recorded Confirmed Type bupropion HCl 150 mg 24 hr tablet, 150 mg PO DIRECTED 06/19/24 09/02/24 History extended release sertraline 100 mg tablet 200 mg PO DIRECTED 06/19/24 09/02/24 History ferrous sulfate 325 mg (65 mg 325 mg PO DAILY #90 tabs 07/02/24 09/02/24 Rx iron) tablet,delayed release Laboratory Tests 09/02/24 09/02/24 08:40 09:16 Hgb Pending Hct Pending POC Urine HCG, Qual Negative (Negative) Patient hx anesthesia problems: none Family hx anesthesia problems: none Results Review: All pre-operative results and documents have been reviewed as part of the pre-operative evaluation. [facility] Past Medical History Medical History (Updated 09/02/24 @ 09:43 by Ayden Mccullough DO) Anemia Anxiety Depression Family History Family History Father Hypertension Diabetes mellitus Mother Family history of diabetes mellitus in first degree relative Sibling Depression Anxiety Grandparent Alcohol abuse Cancer Grandparent Cancer Social History Social History Smoking packs per day: 0.75 Smoking cigarettes per day: 15.0 Smoking status: Current every day smoker Tobacco type: e-cigarettes/vaping Second hand tobacco smoke exposure: No Smoking end date: 10/30/15 Additional smoking assessment comments: DAILY FOR 1.5 YRS Alcohol intake: never Substance use: never Living arrangements: with family Spencer Armijo Final PreProcedure Day of Procedure 09/02/24 09:39 Patient weight: normal Heart: regular rate and rhythm Lungs: clear to auscultation and normal air movement Airway: Mallampati scale class II Neurological: alert and oriented Last oral intake: >/= 8 hours ASA classification: II Emergent: no Anesthetic plan: proceed Anesthesia type and monitoring: general ETT and standard monitoring Results Review: All pre-operative results and documents have been reviewed as part of the pre-operative evaluation. Informed Consent: The patient's anesthetic plan and its attendant risks and benefits were discussed with the patient/family/POA. Questions were solicited and answers provided to the satisfaction of the patient/family/POA.
--- NOTE | 2024-09-02 10:20 | SUR.PREOP ---
Pt and mother updated about surgery delay time.
--- NOTE | 2024-09-02 11:21 | P.OP_ITS ---
Procedure Note - Detailed Date of Procedure 09/02/24 Pre-op Diagnosis desires sterilization Post-op Diagnosis Same Procedure Performed laparoscopic bilateral salpingectomy Surgeon Zander Maria MD Anesthesia General Findings normal appearing uterus, bilateral fallopian tubes and bilateral ovaries; no evidence of endometriosis Description of Procedure With IV fluids infusing, the patient was taken to the operating room. The patient was placed in supine position. General anesthesia with endotracheal intubation was given. A time-out took place. The patient was placed in dorsal lithotomy position using Shubham stirrups and she was prepped and draped in the usual sterile fashion. The bladder was drained using a red rubber catheter. A sterile speculum was placed vaginally, the anterior lip of the cervix was grasped with a single-tooth tenaculum and the acorn uterine manipulator was placed without difficulty. The speculum was removed. The surgeon's gloves were changed and attention was turned to the abdomen. A 5 mm incision was made in the umbilicus. Under direct visualization with the scope, the umbilical port was inserted without difficulty. Another two trocars were placed under direct visualization in the left upper and left lower quadrants. The patient was placed in Trendelenburg and inspection of the pelvis noted the above findings. The posterior and anterior culs-de-sac and the ovarian fossa were inspected and no evidence of endometriosis was found. Appropriate pictures were taken. Using the LigaSure devise, a left salpingectomy was performed in the usual fashion. Care was taken to avoid the IP ligament. The salpingectomy went smoothl y. The same procedure was repeated on the right side. The instruments were all removed from the abdomen and the CO2 gas was allowed to escape. The three skin incisions were reapproximated with 4-0 Polysorb in a subcuticular manner, followed by skin glue. The acorn manipulator and single tooth tenaculum was removed from the uterus and cervix, respectively. The tenaculum sites were hemostatic. All instruments were removed from the vagina. At the end of the case, instrument, sponge and needle counts were correct x 2. The patient was awakened from general anesthesia and was taken to PACU in stable condition. Estimated Blood Loss 5 Pathology Yes Complications No immediate complications Condition Stable Disposition Same day
[2024-09-02] MEDS: LACTATED RINGERS 1,000 ML 30 ML IV CONT ×2 (11:33)
[2024-09-02] MEDS: fentaNYL CITRATE INJ (*CRX) 100 MCG/2 ML VIAL 25 MCG IV PUSH ×4 (11:40→11:54)
--- NOTE | 2024-09-02 11:49 | SUR.PHASEI ---
1133 - MD Mccullough at bedside, notified that RN needs PACU orders. Pt ok to have 25mcg fentanyl IVP q2-3min, max 200mcg.
[2024-09-02] MEDS: HYDROmorphone HCL INJ (*CRX) 1 MG/ML SYR 0.5 MG IV PUSH ×2 (12:01→12:09)
[2024-09-02] MEDS: oxyCODONE HCL (*CRX) 5 MG TAB IR PO (12:46)
== END 2024-09-02 13:15 | disposition home or self-care (01) ==
PROVIDERS: Anesthesiology; PCP Family Medicine; Visit Provider Obstetrics & Gynecology
PROC: (CPT 49320; principal; 2024-09-02 10:00)
PROC: (CPT 58671; 2024-09-02 10:00)
DX: Z30.2 Encounter for sterilization (principal); N83.8 Other noninflammatory disorders of ovary, fallopian tube and broad ligament; D64.9 Anemia, unspecified; F41.9 Anxiety disorder, unspecified; F32.A Depression, unspecified; F17.290 Nicotine dependence, other tobacco product, uncomplicated; Z80.9 Family history of malignant neoplasm, unspecified
CPT/HCPCS: 58661; 36415; 85014; 85018; 88302; A9270; J1100; J1171; J1885; J2250; J2405; J2704; J3010; J7120

== ENCOUNTER 2025-01-09 14:53 | Emergency (ER) | payer OTHER, SELFPAY ==
--- NOTE | 2025-01-09 14:56 | ED_ITS ---
HPI - Ear Problem General Chief complaint: Ear Stated complaint: EAR CLOGGED Time Seen by Provider: 01/09/25 14:54 Source: patient Mode of arrival: ambulatory Limitations: no limitations History of Present Illness HPI Narrative: patient is a 39-year-old female who presents with right ear feeling clogged and muffled. Symptoms started 2 days ago. Denies any drainage, pain, congestion, cough, sore throat, fever, chills, nausea, vomiting, diarrhea. MD Complaint: ear pain Related Data Home Medications ?Medication ?Instructions ?Recorded ?Confirmed ?Last Taken ?Type bupropion HCl 150 mg 24 hr tablet, 150 mg PO DIRECTED 06/19/24 09/02/24 Unknown History extended release sertraline 100 mg tablet 200 mg PO DIRECTED 06/19/24 09/02/24 Unknown History Allergies Allergy/AdvReac Type Severity Reaction Status Date / Time sulfamethizole Allergy Unknown Unknown Verified 01/09/25 15:05 sulfamethoxazole Allergy Unknown Unknown Verified 01/09/25 15:05 trimethoprim Allergy Unknown Unknown Verified 01/09/25 15:05 Review of Systems Review of Systems: All systems reviewed & are unremarkable except as noted in HPI and below Constitutional: Constitutional: Denies body ache(s), Denies chills, Denies fever(s), Denies headache(s) and Denies malaise Eyes: Eyes: Denies blurry vision, Denies eye discharge and Denies irritation ENT: Denies otalgia, Denies headache(s), Denies nasal congestion, Denies nasal discharge, Denies sore throat and Reports other ( Clogged ear) Cardiovascular: Cardiovascular: Denies chest pain, Denies edema, Denies palpitations and Denies dyspnea on exertion Respiratory: Respiratory: Denies cough and Denies dyspnea on exertion Gastrointestinal: Gastrointestinal: Denies abdominal pain, Denies diarrhea, Denies nausea and Denies vomiting Musculoskeletal: Musculoskeletal: Denies back pain, Denies arthralgias and Denies muscle weakness Integumentary/Breasts: Skin/Breast: Denies pruritus and Denies rash Neurologic: Denies headache(s) Psychiatric: Psychiatric: Reports no additional psychiatric complaints Endocrine: Endocrine: Denies palpitations PMFSH Past Medical History Medical History Anemia Depression Anxiety Family History Family History Father Hypertension Diabetes mellitus Mother Family history of diabetes mellitus in first degree relative Sibling Depression Anxiety Grandparent Alcohol abuse Cancer Grandparent Cancer Social History Social History Smoking packs per day: 0.75 Smoking cigarettes per day: 15.0 Smoking status: Current every day smoker Tobacco type: e-cigarettes/vaping Second hand tobacco smoke exposure: No Smoking end date: 10/30/15 Additional smoking assessment comments: DAILY FOR 1.5 YRS Alcohol intake: never Substance use: never Living arrangements: with family Comments At time of signature, agree with nursing past medical, surgical, social and family history. There is no relevant family history pertinent to the presenting complaint? Exam Const: General: cooperative, healthy appearing, no acute distress and well nourished Nutritional Appearance: well nourished Orientation/consciousness: patient oriented x3 Limitations: no limitations HENMT: Head: normal to inspection, normocephalic and atraumatic Ears: hearing grossly normal bilaterally, EAC's normal, no periauricular adenopathy and TM abnormal wth effusion serous on the right Face/Nose/Sinus: Normal external nose present, Normal nares present, Normal nasal mucous membranes and turbinates present, No nasal discharge present, normal facial exam and sinuses nontender Face and sinus: normal facial exam and sinuses nontender Mouth: Yes Normal oral and palatal mucosa present, Yes lip normal, Yes tongue normal and Yes moist mucous membranes Throat: posterior oropharynx normal, tonsils normal and uvula midline Eyes: General: appearance normal, both eyes and all related structures Alignment and Position: alignment normal and position normal Eyelids: eyelids normal Pupils: Equal, round and reactive pupils present EOM: EOMs intact bilaterally Neck: Neck: normal visual inspection, full ROM, no lymphadenopathy and supple Chest: Chest palpation & inspection: normal inspection of the chest Resp: Effort & Inspection: normal respiratory effort and able to speak in complete sentences Auscultation: clear to auscultation bilaterally, no crackles, no rales, no rhonchi and no wheezes Cardio: Rate: regular rate Rhythm: regular rhythm Heart sounds: S1 normal heart sound present and S2 normal heart sound present Skin: General skin exam: normal color and no rashes or lesions noted Neuro: General: patient oriented x3 and moves all extremities Cranial nerves: Yes Equal, round and reactive pupils present Cognition (Neuro): normal cognition Speech: normal speech Gait exam (Neuro): Normal gait present Extrem: General: normal to inspection and full ROM Psych: Appearance: grossly normal and well kempt Mental Status: mental status grossly normal Speech and movement: Normal speech and movement present Course Course Emergency Course: Patient is aware of diagnosis, understands and agrees to treatment plan.? Anticipatory guidance given.? Patient agrees to follow-up as directed and is aware of reasons to seek care at the emergency department.? Portions of this record may have been created with voice recognition software? Level of Care: Express Care Visit Vital Signs Vital signs: Reviewed Medical Decision Making MDM Narrative Medical decision making narrative: Pt well hydrated appearing, in no respiratory distress, hemodynamically stable. Recommend supportive care. The patient is stable at time of discharge the clinical impression was discussed and the patient was given the opportunity to ask questions, which were addressed as completely as possible given the information available at present. Anticipatory guidance and return to care precautions were discussed and the importance of primary care follow-up was stressed and encouraged. The patient voiced understanding of the plan, indications to return, and the need for follow-up. Exam findings show no acute concerns or changes Patient is appropriate for outpatient treatment and follow-up. Differential diagnosis considered: Beckett virus, strep pharyngitis, allergic rhinitis, upper respiratory tract infection, sinusitis, rhinosinusitis, nasopharyngitis. viral pharyngitis, otitis media, otitis externa, otitis effusion, foreign body, cerumen impaction, viral syndrome, and influenza.? Medical Records Medical records reviewed: Yes I reviewed the external patient's medical records. Discharge Plan Discharge Clinical Impression: Acute effusion of right ear Patient Disposition: Home, Self-Care Condition: Stable Instructions: Fluid In The Ear (Serous Otitis Media) (ED) Additional Instructions: -Antihistamine medication such as Benadryl/Zyrtec at night and Claritin/Belkis during the day can help improve symptoms. -Use Flonase twice a day for 5 days then daily to help reduce the inflammation and dry up your sinuses. -You can also use Sudafed behind the pharmacy counter(12 or 24 hour). Be sure to drink plenty of water with these medications at least 8 ounces with every dose and it is important to drink 8 to 10 glasses of water per day. Water is a natural decongestant Call your Primary Care Doctor and make a follow-up appointment in 3 days. If your cough worsens, you develop a fever greater than 103, you develop shaking chills, a fast heartbeat, trouble breathing and/or feel you are are breathing much faster than usual, call your Primary Care Doctor or go to the ER. Patient Language: [place] Islander Prescriptions: New fluticasone propionate [Flonase Allergy Relief] 50 mcg/actuation spray,suspension 1 spray intranasal DAILY Qty: 16 0RF Rx Instructions: administer into each nostril No Action bupropion HCl 150 mg tablet extended release 24 hr 150 mg PO DIRECTED sertraline 100 mg tablet 200 mg PO DIRECTED ibuprofen 600 mg tablet 600 mg PO Q6H PRN (Reason: pain) Qty: 30 0RF oxycodone 5 mg tablet 5 mg PO Q6H PRN (Reason: pain) Qty: 10 0RF ferrous sulfate 325 mg (65 mg iron) tablet,delayed release (DR/EC) 325 mg PO DAILY Qty: 90 1RF valacyclovir [Valtrex] 500 mg tablet 500 mg PO DAILY Qty: 30 0RF Follow-up/Referrals: Hua Gordillo MD [Primary Care Provider] - 3 Days Time of Disposition: 16:00
[2025-01-09 15:03] VITALS: BP 110/64; PULSE 57; RESP 16; TEMP 36.9; O2SAT 99
== END 2025-01-09 16:05 | disposition home or self-care (01) ==
PROVIDERS: Emergency Provider Nurse Practitioner Family; PCP Family Medicine
DX: H74.8X1 Other specified disorders of right middle ear and mastoid (principal); F17.210 Nicotine dependence, cigarettes, uncomplicated
CPT/HCPCS: 99213; G0463

== ENCOUNTER 2025-01-29 09:09 | Emergency (ER) | payer OTHER, SELFPAY ==
--- NOTE | ~2025-01-29 | XR_ITS ---
EXAMINATION: XR chest 2V DATE: 01/29/2025 09:27 INDICATION: Shortness of breath, cough and wheezing TECHNIQUE: PA and lateral views of the chest were obtained. COMPARISON: Chest radiograph dated 12/25/2014 FINDINGS: The lungs remain clear with no focal airspace opacities, pulmonary edema, pleural effusion or pneumot horax. The cardiomediastinal silhouette is normal. Mild thoracolumbar dextrocurvature. IMPRESSION: 1. No acute cardiopulmonary disease. Reviewed, dictated and finalized at location A.
[2025-01-29 09:13] VITALS: BP 103/62; PULSE 52; RESP 20; TEMP 36.7; O2SAT 99
[2025-01-29] MEDS: IPRATROPIUM 0.5 MG/ALBUTEROL SULFATE 2.5 MG AMPUL.NEB 3 ML INHALATION (09:23)
--- NOTE | 2025-01-29 09:24 | ED_ITS ---
HPI - URI/Sore Throat General Chief Complaint: Upper Respiratory Infection Stated Complaint: WHEEZING/HARD TO BREATHE Time Seen by Provider: 01/29/25 09:15 Source: patient Mode of arrival: ambulatory Limitations: no limitations History of Present Illness HPI Narrative: Tracie is a 39-year-old female patient presenting to the clinic today with complaints of wheezing, chest congestion, and shortness of breath. She reports symptoms started 4 days ago. Shortness of breath and wheezing just started yesterday. History of bronchitis and walking pneumonia in the past. Cough is nonproductive. She is a current smoker Related Data Home Medications ?Medication ?Instructions ?Recorded ?Confirmed ?Last Taken ?Type bupropion HCl 150 mg 24 hr tablet, 150 mg PO DIRECTED 06/19/24 09/02/24 Unknown History extended release sertraline 100 mg tablet 200 mg PO DIRECTED 06/19/24 09/02/24 Unknown History Allergies Allergy/AdvReac Type Severity Reaction Status Date / Time sulfamethizole Allergy Unknown Unknown Verified 01/29/25 09:21 sulfamethoxazole Allergy Unknown Unknown Verified 01/29/25 09:21 trimethoprim Allergy Unknown Unknown Verified 01/29/25 09:21 Review of Systems Review of Systems: Pertinent positives per HPI. Patient denies any fever, chills, rash, headache, visual changes, dizziness, chest pain, palpitations, nausea, vomiting, diarrhea, constipation, abdominal pain, or any urinary issues. [facility] Past Medical History Medical History Anemia Depression Anxiety Family History Family History Father Hypertension Diabetes mellitus Mother Family history of diabetes mellitus in first degree relative Sibling Depression Anxiety Grandparent Alcohol abuse Cancer Grandparent Cancer Social History Social History Smoking packs per day: 0.75 Smoking cigarettes per day: 15.0 Smoking status: Current every day smoker Tobacco type: e-cigarettes/vaping Second hand tobacco smoke exposure: No Smoking end date: 10/30/15 Additional smoking assessment comments: DAILY FOR 1.5 YRS Alcohol intake: never Substance use: never Living arrangements: with family Comments At the time of my signature, I reviewed and agree with the nursing past medical, surgical, social, and family history. There is no relevant family history pertinent to the patient complaint. Exam Narrative: General: Well-developed, well nourished, in no apparent distress Head: Normocephalic, atraumatic Eyes: Pupils equally round and reactive to light bilaterally, EOM intact, sclera and conjunctive clear, no discharge, lids normal Ears: TMs intact and clear, ear canals clear, no drainage, grossly hearing normal. Nose: Nares patent, clear nasal discharge, no inflammation, no sinus tenderness. Mouth: Oral pharynx without lesions or masses, good dentition, MMM. Neck: Supple, trachea midline, no enlargement of anterior or posterior cervical nodes, no thyroid masses or goiter palpable. Cardio: Regular rate and rhythm, s1 and s2 normal, no murmur appreciated. Resp: Inspiratory and expiratory wheezing and rhonchi, no rales or rubs Course Course Emergency Course: Portions of this record may have been created with voice recognition software. Level of Care: Express Care Visit Vital Signs Vital signs: Vital Signs Temperature 36.7 C 01/29/25 09:13 Pulse Rate 52 L 01/29/25 09:13 Respiratory Rate 20 01/29/25 09:13 Blood Pressure 103/62 01/29/25 09:13 Pulse Oximetry 99 01/29/25 09:13 Oxygen Delivery Room Air 01/29/25 09:13 Temperature 36.7 C 01/29/25 09:13 Pulse Rate 52 L 01/29/25 09:13 Respiratory Rate 20 01/29/25 09:13 Blood Pressure 103/62 01/29/25 09:13 Pulse Oximetry 99 01/29/25 09:13 Oxygen Delivery Room Air 01/29/25 09:13 Vital signs reviewed MDM - URI/Sore Throat MDM Narrative Medical decision making narrative: At the time of visit patient is resting comfortably on the exam table. Patient appears to be nontoxic. Diagnostics: Chest x-ray was performed and was negative for any acute cardiopulmonary process. Medications: DuoNeb hand-held neb treatment was given in the clinic today. This improved lung sounds and patient reports she is able to take a deeper breath. Plan: I suspect patient has bronchitis. Prescription for albuterol inhaler and prednisone was sent to the pharmacy. Supportive measures were discussed with the patient and they voiced understanding discharge instructions and agrees to treatment plan. Return precautions reviewed Differential Diagnosis Differential diagnosis: Likely upper respiratory infection, otitis media, sinusitis, viral infection, bronchitis, influenza, pharyngitis and other (COVID) Imaging Data Radiologist's impression: ITS Impressions Chest X-Ray 01/29/25 09:39 IMPRESSION: 1. No acute cardiopulmonary disease. Discharge Plan Discharge Clinical Impression: Acute bronchitis Qualifiers: Bronchitis organism: unspecified organism Qualified Code(s): J20.9 - Acute bronchitis, unspecified Patient Disposition: Home, Self-Care Condition: Stable Instructions: Antibiotic Form, Acute Bronchitis (ED) Additional Instructions: Take prescription medications only as prescribed-prednisone and albuterol inhaler Increase fluids and stay well hydrated Tylenol/motrin for pain/fever Flonase and OTC antihistamines as directed Vicks vapor rub to open sinuses Sinus rinses for congestion Cepacol spray, cough drops, throat lozenges, warm tea with honey/lemon, gargle salt water to soothe throat BRAT diet for diarrhea Clear liquids x 24 hours then advance as tolerated for nausea/vomiting Go to the ED if you develop a worsening in your condition- high fever not controlled by Tylenol or Motrin, dehydration, weakness, lethargy, shortness of breath, or chest pain. Follow up with your PCP in 3-5 days if symptoms persist. Patient Language: Icelandic Prescriptions: New albuterol sulfate 90 mcg/actuation HFA aerosol inhaler 2 puff inhalation Q4-6H PRN (Reason: shortness of breath or wheezing) 30 Days Qty: 8.5 0RF prednisone 20 mg tablet 40 mg PO DAILY 5 Days Qty: 10 0RF No Action fluticasone propionate [Flonase Allergy Relief] 50 mcg/actuation spray,suspension 1 spray intranasal DAILY Qty: 16 0RF Rx Instructions: administer into each nostril bupropion HCl 150 mg tablet extended release 24 hr 150 mg PO DIRECTED sertraline 100 mg tablet 200 mg PO DIRECTED ibuprofen 600 mg tablet 600 mg PO Q6H PRN (Reason: pain) Qty: 30 0RF oxycodone 5 mg tablet 5 mg PO Q6H PRN (Reason: pain) Qty: 10 0RF ferrous sulfate 325 mg (65 mg iron) tablet,delayed release (DR/EC) 325 mg PO DAILY Qty: 90 1RF valacyclovir [Valtrex] 500 mg tablet 500 mg PO DAILY Qty: 30 0RF Follow-up/Referrals: Hua Gordillo MD [Primary Care Provider] - Stand Alone Forms: Work/School Release IP Time of Disposition: 09:45 Quality NIHSS Nursing Documentation ED NIHSS nursing documentation: reviewed/agree
[2025-01-29 09:50] VITALS: RESP 18; O2SAT 98
== END 2025-01-29 09:50 | disposition home or self-care (01) ==
PROVIDERS: Emergency Provider Nurse Practitioner Family; PCP Family Medicine
DX: J20.9 Acute bronchitis, unspecified (principal); F41.9 Anxiety disorder, unspecified; F32.A Depression, unspecified; F17.290 Nicotine dependence, other tobacco product, uncomplicated
CPT/HCPCS: 71046; 94640; 99213; G0463

== ENCOUNTER 2025-06-09 10:43 | Outpatient (CLI) | payer OTHER, SELFPAY ==
--- NOTE | ~2025-06-09 | MMUS_ITS ---
EXAMINATION: MM diagnostic mateusz BI w mitchel, US breast BI complete HISTORY: Palpable left breast abnormality TECHNIQUE: Additional 3-D tomosynthesis images of the breasts were performed and synthetic 2-D images were generated. CAD analysis was submitted and interpreted. High resolution bilateral complete breas t ultrasound was performed. COMPARISON: None BREAST PARENCHYMAL COMPOSITION: Dense: The breasts are extremely dense, which lowers the sensitivity of mammography. FINDINGS: MAMMOGRAPHIC FINDINGS: There are no suspicious masses, calcifications or architectural distortion in either breast to sugges t malignancy. ULTRASOUND: Complete US of all 4 quadrants of the breast/s and retroareolar region was reviewed. Right breast: At 5:00, 2 cm from the nipple there is an oval hypoechoic mass measuring 4 mm without i nternal vascularity or significant posterior features. Left breast: At 2:00, 2 cm from the nipple there is a cyst measuring 3 mm. IMPRESSION: 1. Probable benign right breast mass located at 5:00, 2 cm from the nipple measuring 4 mm. No evidenc e for malignancy in the left breast. 2. Recommend 6 month follow-up Limited right breast ultrasound BI-RADS category 3, probably benign findings. Reviewed, dictated and finalized at location A. IMPRESSION: 1. Probable benign right breast mass located at 5:00, 2 cm from the nipple haim uring 4 mm. No evidence for malignancy in the left breast. 2. Recommend 6 month follow-up Limited right breast ultrasound BI-RADS category 3, probably benign findings.
--- OUTSIDE RECORDS SUMMARY | 2025-06-09 10:47 | XMS_ITS | Clinical Summary ---
Author Organization [facility] Address [address] [place] [address] Care Team Providers Care Concrete Pointer Name Role Phone Abner Goncalves Primary Care Provider Source Comments [facility],non-owned Affiliates and Associated Physician Practices is amultiple site organization consisting of ambulatory clinics and hospital sitesin [place], [place], [place] and [place]. This disclosure is being madepursuant to the Care Everywhere program and may not contain all information available regarding this patient. Last updated 18.[facility] Allergies Active Allergy Reactions Criticality Noted Date Comments Sulfamethoxazole W-Trimethoprim Urticaria High 10/31 Reaction: Hives, Medications * Be aware that medications may not be up to date on this document. Alwaysverify current medications with the patient. sertraline (ZOLOFT) 100 MG tablet TAKE 1 TABLET BY MOUTH ONCE DAILY IN THE MORNING 10/07/2019 Active metroNIDAZOLE (METROGEL) 0.75 % gelIndications: Other rosacea Apply to affected area on face BID. 30 day supply. 60 g 11 11/21/2019 Active Active Problems Problem Noted Date Diagnosed Date Multiple benign melanocytic nevi of upper and lower extremities and trunk 11/21/2019 Lentigines 11/21/2019 Family History Medical History Relation Name Comments Cancer - Other Paternal Grandfather Cancer - Other Paternal Grandmother Relation Name Status Comments Paternal Grandfather Paternal Grandmother Social History Tobacco Use Types Packs/Day Years Used Date Smoking Tobacco: Every Day Cigarettes Smokeless Tobacco: Never Alcohol Use Standard Drinks/Week Comments Never 0 (1 standard drink = 0.6 oz pur e alcohol) AUDIT-C Answer Date Recorded Frequency of Alcohol Consumption Never 11/21/2019 Average Number of Drinks Not on file 020 Frequency of Binge Drinking Not on file 10/31 Comments Unknown Sex and Gender Information Value Date Recorded Sex Assigned at Not on file 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 Gender Identity Not on file Sexual Orientation Not on file Plan of Treatment Health Maintenance Due Date Last Done Comments HIV SCREENING 2000 HEPATITIS C SCREENING 08/26/2003 DTAP/TDAP/TD VACCINES (1 - Tdap) 2004 HEPATITIS B VACCINE (1 of 3 - 19+ 3-dose series) 2004 PNEUMOCOCCAL VACCINE (1 of 2 - PCV) 2004 PAP SMEAR 2006 HPV VACCINE (1 - 3-dose SCDM series) 2012 COVID-19 VACCINE (1 - 2023-2 5 season) 2024 DEPRESSION SCREENING 10/30/2024 INFLUENZA VACCINE (#1) 2025 ZOSTER VACCINE (1 of 2) 2035 HIB VACCINE Aged Out No longer eligi ble based on patient's age to complete this topic MENINGOCOCCAL (Group B) VACC INE SHARED DECISION-MAKING Aged Out No longer eligibl e based on patient's age to complete this topic MENINGOCOCCAL GROUPS A/C/Y/W VACCINE Aged Out No longer eligible b ased on patient's age to complete this topic Insurance [facility] SELF PAY NO INSURANCE Member Subscriber Plan / Payer (Ef fective for All Dates) Name:Tracie Parada Member ID:Not on file Relation to Subscriber:Not on file Name:TRACIE PARADA Subscriber ID:Not on file (Home) Address: [facility] [place] [address] Payer ID:Not on file Group ID:Not on file Type:Self Pay Address: [place], [place] Care Teams Concrete Pointer Relationship Specialty Start Date End Date Abner Goncalves DO [address] [place] [phone] PCP - General 11/21/19
--- OUTSIDE RECORDS SUMMARY | 2025-06-09 10:47 | XMS_ITS | Clinical Summary ---
Author Organization [facility] [place] [address] Address [address] [place] [address] Care Team Providers Care Selenium Plant Operator Name Role Phone Hua Gordillo MD Primary Care Provider [phone] Allergies Active Allergy Reactions Criticality Noted Date Comments Sulfa (Sulfonamide Antibiotics) Hives Medium 10/2017 Sulfamethoxazole-Trimethoprim Hives High Reaction: Hives, Medications calcium-vitamin D3-vitamin K 500-200-40 mg-unit-mcg tablet,chewable Take by mouth Active vit-iron fum-folic ac 27 mg iron- 0.8 mg tablet 1 tablet daily Active valACYclovir (VALTREX) 500 mg tabletIndication s:Chronic Suppression Take 1 tablet by mouth twice daily 60 tablet 5 01/07/2021 Active sertraline (ZOLOFT) 100 mg tablet Take 1 tablet (100 mg total) by mouth daily 30 tablet 11 08/03/2021 Active Active Problems Problem Noted Date Diagnosed Date Term 12/30/2020 History of substance abuse 02/27/2018 History of alcohol abuse 02/27/2018 Liver lesion 02/27/2018 Polycystic ovaries 02/27/2017 Immunizations Immunization Administration Dates Next Due Influenza, Quadrivalent, Spl it, Preservative Free, Intramuscular 08/20/2020 Tdap 11/02/2020 Surgical History Surgery Date Site/Laterality Comments WISDOM TOOTH EXTRACTION Bilateral Medical History Medical History Date Comments Asthma History of depression HSV (herpes simplex virus) infection no outbreak during STI (sexually transmitted infection) Mental disorder PCOS (polycystic ovarian syndrome) Family History Medical History Relation Name Comments Cancer Father Depression Father Heart disease Father Diabetes Mother Breast cancer Mother's Sister Breast Canc er - aunt (Added by TW Conv) Cancer Other 1 Reported Family History Of Cancer - grandparents; aunt (Added by Conv) Hypertension Other 2 Reported Previo us High Blood Pressure - father (Added by Conv) Diabetes Other 3 Diabetes Mellit us - mother (Added by Conv) Skin cancer Paternal Grandmother Relation Name Status Comments Father Mother Mother's Sister Other 1 Other 2 Other 3 Paternal Grandmother Social History Tobacco Use Types Packs/Day Years Used Date Smoking Tobacco: Every Day Cigarettes Smokeless Tobacco: Never Tobacco Cessation:Ready to Q uit: No; Counseling Given: Yes Alcohol Use Standard Drinks/Week Comments Not Currently 0 (1 standard drink = 0.6 oz pur e alcohol) Sober for 6 years AUDIT-C Answer Date Recorded Q1: How often do you have a drink containing alc ohol? Never 12/30/2020 Average Number of Drinks Not on file 021 Frequency of Binge Drinking Not on file 12/2020 [place] Depression Scale Answer Date Recorded [place] Depression Scale Total 0 02/18/2021 The thought of harming myself has occurred to me . 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 IV, MD Complications:None Delivery Location:This [facility] ([facility]) Comments:see delivery note from Castro Bocanegra MD Last Filed Vital Signs Vital Sign Reading Time Taken Comments Blood Pressure 104/70 02/24/2021 8:28 AM CDT Pulse 56 02/24/2021 8:28 AM CDT Temperature 36.7 C (98.1 F) 02/24/2021 8:28 AM CDT Respiratory Rate 20 01/02/2021 9:00 AM ENTERPRISE ANALYST Oxygen Saturation 100% 01/02/2021 9:00 AM ENTERPRISE ANALYST Inhaled Oxygen Concentration - - Weight 82.6 kg (182 lb) 02/24/2021 8:28 AM CDT Height 167.6 cm (5' 6) 02/24/2021 8:28 AM CDT Body Mass Index 29.38 02/24/2021 8:28 AM CDT Plan of Treatment Not on file Insurance [facility] CHOICE PLUS [facility] HMO/PPO Address: [facility] [address] [place] [address] [facility] Advance Directives For more information, please contact: [phone] * Full Code (Latest Code Status on File) Date Activated Date Inactivated Comments 12/31/2020 2:20 PM 01/02/2021 8:31 PM * Full Code Date Activated Date Inactivated Comments 12/30/2020 9:39 PM 12/31/2020 2:20 PM Full CPR in ca se of cardiopulmonary arrest Care Teams Selenium Plant Operator Relationship Specialty Start Date End Date Hua Gordillo MD PCP - General Family Practice 05/19/23
== END 2025-06-09 10:44 | disposition home or self-care (01) ==
LOC: ANHIMG 10:44
PROVIDERS: PCP Family Medicine; Visit Provider Nurse Practitioner
DX: R92.8 Other abnormal and inconclusive findings on diagnostic imaging of breast (principal)
CPT/HCPCS: 76641; 77062; 77066; G0279